=== PATIENT | male | born 1990 | race Caucasian/White ===

== ENCOUNTER 2017-04-26 10:13 | Emergency (ER) | payer SELFPAY ==
[2017-04-26 11:19] VITALS: BP 148/82
== END 2017-04-26 12:01 | disposition home or self-care (01) ==
LOC: ER 10:13
DX: S40.852A Superficial foreign body of left upper arm, initial encounter (principal); S40.851A Superficial foreign body of right upper arm, initial encounter; F17.210 Nicotine dependence, cigarettes, uncomplicated; X58.XXXA Exposure to other specified factors, initial encounter; Y93.89 Activity, other specified; Y99.8 Other external cause status; Y92.89 Other specified places as the place of occurrence of the external cause
CPT/HCPCS: 10120

== ENCOUNTER 2018-03-31 17:56 | Emergency (ER) | payer OTHER ==
[~2018-03-31] VITALS: Ht 185.4 cm; Wt 68.0 kg
[2018-03-31 18:17] VITALS: BP 150/97
== END 2018-03-31 23:07 | disposition home or self-care (01) ==
LOC: ER 17:56
DX: S60.221A Contusion of right hand, initial encounter (principal); S60.551A Superficial foreign body of right hand, initial encounter; W19.XXXA Unspecified fall, initial encounter; Y93.89 Activity, other specified; Y99.8 Other external cause status; Y92.89 Other specified places as the place of occurrence of the external cause
CPT/HCPCS: 73130; 73200

== ENCOUNTER 2018-12-31 01:09 | Emergency (ER) | payer OTHER ==
[~2018-12-31] VITALS: Ht 185.4 cm; Wt 68.0 kg
[2018-12-31 02:48] LABS: Basophils # (auto) 0 uL; Basophils % (auto) 0.4 % (0.0-2.0); Eosinophils # (auto) 0.2 uL; Eosinophils % (auto) 1.7 % (0.0-7.0); Hematocrit 45.5 % (41.0-53.0); Hemoglobin 15.2 g/dL (13.5-17.5); Lymphocytes # (auto) 2.9 uL; Lymphocytes % (auto) 26.4 % (10.0-50.0); Mean Corpuscular Hemoglobin 31.8 pg (28.0-32.0); Mean Corpuscular Hgb Conc. 33.4 g/dL (32.0-36.0); Mean Corpuscular Volume 95.2 fL (80.0-100.0); Monocytes # (auto) 0.7 uL; Monocytes % (auto) 6.2 % (0.0-12.0); Neutrophils # (auto) 7.2 uL; Neutrophils % (auto) 65.3 % (37.0-80.0); Platelet Count (auto) 261 10^3/uL (140-450); Red Blood Cells 4.78 10^6/uL (4.5-5.90); Red Cell Distribution Width 14.3 % (11.8-14.3)
[2018-12-31 03:04] LABS: Albumin 3.8 g/dL (3.4-5.0); BUN/Creatinine Ratio 14.8; Calcium 8.7 mg/dL (8.5-10.1)
[2018-12-31 03:07] LABS: Bilirubin, Total 0.2 mg/dL (0.2-1.0); Total Protein 7.1 g/dL (6.4-8.2)
[2018-12-31 05:20] LABS: Urine Bacteria NONE SEEN /hpf (None Seen); Urine Blood 2+ /uL (Negative); Urine Specific Gravity 1.025 (1.001-1.035); Urine WBC 11 /hpf (0 - 3)
[2018-12-31] MEDS ORDERED: KETOROLAC TROMETH 15 mg/ml 1ML VL IV ONE ×2 (05:30→08:30)
[2018-12-31] MEDS ORDERED: SODIUM CHLORIDE 0.9% 1,000 ML IV ONE (05:30)
[2018-12-31 05:36] LABS: Alcohol, Urine < 3.0 mg/dL (0-5); Amphetamine Screen, Urine POSITIVE (NEGATIVE); Barbiturate Scree,Urine NEGATIVE (NEGATIVE); Benzodiazephine Screen, Urine NEGATIVE (NEGATIVE); Cannabinoid Screen, Urine POSITIVE (NEGATIVE); Cocaine Screen, Urine NEGATIVE (NEGATIVE); Opiate Scree,Urine NEGATIVE (NEGATIVE); Phencyclidine Screen, Urine NEGATIVE (NEGATIVE)
[2018-12-31] MEDS ORDERED: TAMSULOSIN HYDROCHLORIDE 0.4 MG CAP PO ONE (07:45)
[2018-12-31 09:43] VITALS: BP 112/58
== END 2018-12-31 10:53 | disposition home or self-care (01) ==
LOC: ER 01:11
DX: N43.3 Hydrocele, unspecified (principal); N20.1 Calculus of ureter; F17.210 Nicotine dependence, cigarettes, uncomplicated; F12.90 Cannabis use, unspecified, uncomplicated; F15.90 Other stimulant use, unspecified, uncomplicated
CPT/HCPCS: 36415; 74176; 76870; 80053; 80307; 81001; 85025; 96361; 96374; 96376; 99284; J1885; J7030